=== PATIENT | female | born 1950 | race Caucasian/White ===

== ENCOUNTER 2021-02-16 10:20 | Outpatient (REF) | payer MEDICARE, OTHER, SELFPAY | END 2021-02-16 10:21 | disposition home or self-care (01) | LOC: HO.10HDL 10:20 | PROVIDERS: Absent Provider Internal Medicine; PCP Internal Medicine; Referring Provider Nurse Practitioner Family; Visit Provider Internal Medicine Endocrinology, Diabetes & Metabolism | DX: E03.8 Other specified hypothyroidism (principal); E06.3 Autoimmune thyroiditis; M85.89 Other specified disorders of bone density and structure, multiple sites | CPT/HCPCS: 36415; 82306; 99212 ==

== ENCOUNTER → 2022-03-30 14:55 | Outpatient (BNVA) | payer MEDICARE, OTHER, SELFPAY | PROVIDERS: PCP Internal Medicine; Visit Provider Internal Medicine Endocrinology, Diabetes & Metabolism | DX: M85.89 Other specified disorders of bone density and structure, multiple sites (principal); E03.8 Other specified hypothyroidism; E06.3 Autoimmune thyroiditis | CPT/HCPCS: 99212 ==